=== PATIENT | female | born 2005 | race Two or more races ===

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

== ENCOUNTER 2025-03-24 15:14 | Emergency (ER) | payer MEDICAID ==
[~2025-03-24] VITALS: Ht 157.5 cm; Wt 63.0 kg
[2025-03-24 15:21] VITALS: BP 137/75; PULSE 72; RESP 18; TEMP 97.8; O2SAT 97
--- NOTE | 2025-03-24 15:51 | RADIOLOGY REPORT ---
CLINICAL INDICATION: RT.KNEE PAIN TECHNIQUE: 3 radiographic views of the right knee were obtained. Comparison: None FINDINGS/IMPRESSION: There is no evidence of acute fracture or dislocation. The visualized joint space is well maintained. The alignment is anatomical. There is no radiopaque foreign body.
--- NOTE | 2025-03-24 16:24 | Physician Documentation ---
History of Present Illness ~ Chief Complaint: Knee Pain Stated Complaint: R KNEE PAIN Time Seen by MD: 15:46 Primary Medical Doctor: None HPI This 20-year-old female with previous injury to her right knee presents with one day of right knee pain, patient reports she felt a pop in her knee and felt as if her patella was dislocated, patient reports that she has had previous history of similar episodes that usually resolve within sec this lasted much longer, patient reports that she took ibuprofen now pain is only present when she fully extends her leg. Patient reports that she is able to walk and bear weight on the knee without pain. Tetanus witin 5 years: Yes Medication Reconciliation Allergies: Coded Allergies: No Known Allergies (Unverified , 03/08/22) Past Medical History Past Medical History: No Pertinent History Past Surgical History: noncontributory Alcohol Use: None Drug Use: none Lives with: Family Lives In: Home Occupation: student Review of Systems ROS Right knee pain as stated above in the HPI, otherwise all systems are reviewed and negative. Physical Exam Vital Signs: Temperature: 97.8, Source: Temporal, Heart Rate: 72, Respiratory Rate: 18, BP: 137/75, Pulse Oximetry: 97, Weight: 63.050 Physical Exam VITALS: Reviewed and as above. GENERAL: Alert, nontoxic appearing, no apparent distress. RESPIRATORY: No increased work of breathing, no respiratory distress, speaking in full clear sentences MUSCULOSKELETAL: Right knee; No swelling, no ecchymosis, no tenderness to palpation, full range of motion, neurovascularly intact distal to the injury Progress Results/Orders Results/Orders Orders - [facility] ST[facility] RECEIVING SPECIALIST Ortho Orders (03/24/25 ) Vital Signs 03/24/25 15:21 Temp 97.8 Pulse 72 Resp 18 B/P (MAP) 137/75 Pulse Ox 97 Medical Decision Making Findings This 20-year-old female presented with right knee pain after she reports that her patella dislocated than spontaneously reduced, it was reassuring patient reported the pain is only present when she hyperextends her knee otherwise is nonpainful and has full range of motion. Physical exam did not demonstrate evidence of injury as there was no swelling, tenderness to palpation, ecchymosis, or erythema. An x-ray of the knee was obtained and did not demonstrate evidence of fracture or dislocation. The limb is neurovascularly intact distal injury and the patient is able to walk and bear weight on the knee without difficulty, parent additionally reports that she does have a knee brace at home that provides good relief of symptoms. Remainder of physical exam was benign and patient was otherwise well-appearing. Patient did report that she has had similar episodes of this knee pain in the past following an injury to the knee some time ago, though has not seen a specialist for it, as this appears to be an exacerbation of chronic injury patient will need follow up with the specialist for further evaluation. Patient was appropriate for outpatient follow up. Patient provided return to care precautions which she verbalized understanding of. Patient verbalized understanding of the need to follow up with primary care provider for specialist referral. Knee Diff Dx:Considerations: Include: Abrasion, Arthritis, Contusion, Fracture- femur, Fracture-fibula, Fracture-patella, Fracture-tibia, Hematoma, Meniscus injury, Neurovascular injury, Septic, Sprain Departure Time of Disposition: 16:46 Disposition: 01 HOME / SELF CARE / HOMELESS Impression: Primary Impression: Knee pain Qualified Codes: M25.561 - Pain in right knee; G89.29 - Other chronic pain Condition: Improved Discharge Instructions: Acute Knee Pain, Adult, Elastic Bandage and RICE Therapy Additional Instructions: I believe you may have aggravated an old injury your knee, please see the attached home care instructions. Continue to use ibuprofen and or Tylenol as needed for pain as directed by [id number] packaging. Please follow up with a primary care provider in the next few days as you may need referral to orthopedist or physical therapy. Please return to the emergency department for any new or worsening concerning symptoms. Referrals: NO PRIMARY CARE PROVIDER (PCP) Education Educated: Patient Educated regarding: diagnosis, treatment, prognosis, need for follow up Signature Scribe Signature: No scribe Attestation: The note accurately reflects work and decisions made by me.MOISES Stephenson 03/25/25 02:32 RIO SEGURA March 24, 2025 16:24
== END 2025-03-24 17:04 | disposition home or self-care (01) ==
LOC: ER 15:15
DX: G89.29 Other chronic pain (principal); M25.561 Pain in right knee
CPT/HCPCS: 73564; 99283